=== PATIENT | male | born 1985 | race Caucasian/White ===

== ENCOUNTER 2021-01-09 16:06 | Inpatient (IN) | payer OTHER ==
[2021-01-08 20:13] VITALS: BP 130/60; PULSE 90
[~2021-01-09] VITALS: Ht 195.6 cm; Wt 82.0 kg
[2021-01-09] VITALS (8 sets, daily range): BP systolic 125–135; BP diastolic 60–77; PULSE 73–94; TEMP 97.4–99
[~2021-01-09 16:06] MED LIST: NO HOME MEDICATIONS
[2021-01-09] MEDS ORDERED: VALTREX1 GM PO (16:50)
[2021-01-09] MEDS ORDERED: DOXYCYCLINE HY100 MG PO (16:51)
[2021-01-09 17:15] LABS: SYNOVIAL FL. MONONUCLEAR 5.9 % (0-75); SYNOVIAL FLUID RBC 18000 /mm3 (0-0); SYNOVIAL FLUID WBC 35646 /mm3 (200-600)
--- NOTE | 2021-01-09 17:42 | NUR ---
Consent obtained. IV started 20 gauge LFA LR for gravity at 120 ml/hr. Assessment not complete due to surgeon and PACU nurse taking patient to OR.
[2021-01-09 18:45] LABS: SYNOVIAL FLUID APPEARANCE CLOUDY; SYNOVIAL FLUID COLOR YELLOW
--- NOTE | 2021-01-09 19:06 | NUR ---
PATIENT ARRIVAL FROM PACU PENDING, WAITING FOR CALL FOR REPORT FROM PACU NURSE WHEN PATIENT READY FOR TRANSFER.
--- NOTE | 2021-01-09 21:02 | NUR ---
TOLERATED GENERAL DIET AND PAIN MEDS AT THIS TIME. DENIES URGE TO VOID AT THIS TIME. AT BEDSIDE. IV FLUIDS INFUSING WITH NO PROBLEMS. DENIES ANY OTHER NEEDS OR CONCERNS/QUESTIONS.
[2021-01-09 22:08] LABS: HEMATOCRIT 43.3 % (42.0-52.0); HEMOGLOBIN 14.1 g/dl (13.5-18.0); MEAN CELL VOLUME 95 fl (80.0-100.0); MEAN CORPUSCULAR HEMOGLOBIN 31 pg (27.0-31.0); MEAN CORPUSCULAR HGB CONC 33 g/dl (33.0-37.0); MEAN PLATELET VOLUME 9.6 fl (7.4-10.4); PLATELET COUNT 259 K/mm3 (130-400); RED BLOOD COUNT 4.55 M/mm3 (4.20-5.60)
[2021-01-09 22:19] LABS: ALBUMIN 4.3 gm/dL (3.5-5.0); BILIRUBIN,TOTAL 0.9 mg/dL (0.0-1.0); CALCIUM 9.3 mg/dL (8.4-10.2); CREATININE, serum 0.9 (0.66-1.25); POTASSIUM 4.1 mmol/L (3.4-5.0); TOTAL PROTEIN 7.7 gm/dL (6.4-8.2)
[2021-01-09 22:35] LABS: C-REACTIVE PROTEIN 15.4 mg/dL (0.0-0.9)
[2021-01-09 23:11] LABS: BAND 3 % (0-10); HYPOCHROMIA 1+; LYMPHOCYTE 2 % (20.0-51.0); NEUTROPHILS 94 % (42.0-75.2); PLATELET ESTIMATE NORMAL (NORMAL)
--- NOTE | 2021-01-09 23:40 | NUR ---
Vancomycin Initial Dosing Pharmacy Note Ordering provider: Moy Aiken MD Indication/duration: Joint infection / 7 days Relevant comorbidities: N/A LABS: WBC = 11.4, SCr = 0.9 Recommendation: Will draw troughs and follow levels. Loading dose: 1.5 grams Maintenance dose: 1.25 grams every 8 hours Trough goal: 15-20 ug/mL
--- NOTE | 2021-01-09 23:45 | NUR ---
PATIENT VOIDED EARLIER SMALL AMOUNT OF URINE WITH NO PAIN OR URGENCY. RESTING QUIETLY IN BED WITH NO FURTHER NEEDS REPORTED. TOLERATING PO INTAKE WITH NO REPORTED NAUSEA AT THIS TIME. TELE IN PLACE.
[2021-01-10 04:31] VITALS: BP 128/70; PULSE 78; TEMP 97.5
--- NOTE | 2021-01-10 06:30 | NUR ---
Report received from ANDREW Salazar. Patient is resting comfortably in bed and denies pain at this time. This nurse talked to patient about staying ahead of the pain and not having to howard the pain. Patient stated he would ask for pain medication if his pain increased but stated he was good for now. Call light and bedside table are within reach. Will continue to monitor patient throughout shift.
[2021-01-10 06:36] LABS: HEMATOCRIT 38.8 % (42.0-52.0); HEMOGLOBIN 13.2 g/dl (13.5-18.0); MEAN CELL VOLUME 92 fl (80.0-100.0); MEAN CORPUSCULAR HEMOGLOBIN 31 pg (27.0-31.0); MEAN CORPUSCULAR HGB CONC 34 g/dl (33.0-37.0); MEAN PLATELET VOLUME 9.6 fl (7.4-10.4); PLATELET COUNT 254 K/mm3 (130-400); RED BLOOD COUNT 4.21 M/mm3 (4.20-5.60); REDCELL DISTRIBUTION WIDTH-CV 12.2 % (11.5-14.5)
[2021-01-10 06:46] LABS: CALCIUM 9.1 mg/dL (8.4-10.2); CREATININE, serum 0.75 (0.66-1.25); POTASSIUM 4.9 mmol/L (3.4-5.0)
[2021-01-10 07:19] LABS: BAND 3 % (0-10); LYMPHOCYTE 6 % (20.0-51.0); NEUTROPHILS 88 % (42.0-75.2); PLATELET ESTIMATE NORMAL (NORMAL)
--- NOTE | 2021-01-10 07:30 | NUR ---
CHANGE OF SHIFT REPORT GIVEN TO DAY SHIFT NURSES, MARY BETH RN AND ASHLEY MORALES.
[2021-01-10 07:53] VITALS: BP 127/70; PULSE 74; TEMP 98
[2021-01-10 08:01] LABS: ERYTHROCYTE SEDIMENTATION RATE 34 mm/hr (0-15)
--- NOTE | 2021-01-10 10:27 | NUR ---
SW met with patient to complete intake. Patient states that he lives in [facility] with his Ita [phone] who was present during intake, and appointed as DPOA-HC during intake. Documenation for DPOA-HC completed, reviewed, signed by patient and witnessed by facility staff. Original documenation placed in chart and copies provided to patient for their records. Patient states that he does not normally utilize DME but has recently utilized crutches, and is independent with ADL's. Patient provides that his PCP is Dr. Castro, pharmacy is [facility], and is able to afford his medications. Patient states he plans to go back to his home up [place] and has no concerns with doing so. SW will continue to follow. Plan: Home with spouse
--- NOTE | 2021-01-10 10:51 | NUR ---
Initial visit; Patient thanked [employer] for looking in on him and offering God's blessings and keeping him in [employer]'s prayers.
[2021-01-10 11:35] VITALS: BP 119/63; PULSE 85; TEMP 98.2
--- NOTE | 2021-01-10 11:40 | NUR ---
PICC line placed by ANDREW Clifton.
--- NOTE | 2021-01-10 14:44 | NUR ---
AGREE WITH ASSESSMENTS FROM MARY BETH MORALES.
[2021-01-10 15:48] VITALS: BP 119/58; PULSE 80; TEMP 98.4
[2021-01-10 19:11] VITALS: BP 128/69; PULSE 105; TEMP 98.4
--- NOTE | 2021-01-10 19:14 | NUR ---
RECEIVED CHANGE OF SHIFT REPORT FROM DAY SHIFT NURSE.
--- NOTE | 2021-01-10 19:26 | NUR ---
REPORTS NO NEEDS AT THIS TIME. UP IN ROOM INDEPENDENTLY WITH NO REPORTED PROBLEMS OR CONCERNS. AT BEDSIDE. DENIES PAIN AT THIS TIME. PICC LINE IN PLACE, GABE DRY.
[2021-01-10 23:39] VITALS: BP 119/61; PULSE 84; TEMP 97
[2021-01-11 04:20] VITALS: BP 120/60; PULSE 71; TEMP 97.9
--- NOTE | 2021-01-11 06:55 | NUR ---
CHANGE OF SHIFT REPORT GIVEN TO DAY SHIFT NURSES, MARY BETH RN AND ASHLEY MORALES.
--- NOTE | 2021-01-11 07:05 | NUR ---
Report received from ANDREW Salazar. Patient is resting comfortably in bed and denies pain at this time. Call light and bedside table are within reach. Will continue to monitor patient throughout shift.
[2021-01-11 07:40] VITALS: BP 124/73; PULSE 76; TEMP 98.3
[2021-01-11 09:27] LABS: BASO % 0.3 % (0.0-2.0); EOS % 0.2 % (0-4.0); GRAN # 5.9 (1.4-6.5); GRAN % 68.4 % (42.2-75.2); HEMATOCRIT 37.3 % (42.0-52.0); HEMOGLOBIN 12.4 g/dl (13.5-18.0); LYMPH # 2.1 (1.2-3.4); LYMPH % 24.4 % (20.0-51.0); MEAN CELL VOLUME 93 fl (80.0-100.0); MEAN CORPUSCULAR HEMOGLOBIN 31 pg (27.0-31.0); MEAN CORPUSCULAR HGB CONC 33 g/dl (33.0-37.0); MEAN PLATELET VOLUME 9.4 fl (7.4-10.4); MONO # 0.5 (0.1-0.6); MONO % 6.1 % (1.7-9.3); PLATELET COUNT 262 K/mm3 (130-400); REDCELL DISTRIBUTION WIDTH-CV 12.2 % (11.5-14.5)
[2021-01-11 09:43] LABS: C-REACTIVE PROTEIN 5.4 mg/dL (0.0-0.9); CALCIUM 8.8 mg/dL (8.4-10.2); CREATININE, serum 0.8 (0.66-1.25); POTASSIUM 3.4 mmol/L (3.4-5.0)
--- NOTE | 2021-01-11 10:36 | NUR ---
Patient requested information on WC rentals. SW called DME companies to ontain information and provided patient with follow up info. Patient due to discharge today 01/11/21. SW will continue to follow.
--- NOTE | 2021-01-11 10:57 | NUR ---
Follow-up visit; Patient doing well and thanked Elevator Attendant for looking in on him and wishing him well. Patient leaving today.
[2021-01-11 11:15] VITALS: BP 125/72; PULSE 82; TEMP 99
[2021-01-11] MEDS ORDERED: ROCEPHIN 2GM VIAL21 IV (12:49)
--- NOTE | 2021-01-11 15:21 | NUR ---
Patient has been discharged and room in clear of all belongings to include cell phone and elevator tender. Patient escorted out by SANDRA Inman.
== END 2021-01-11 15:21 | disposition home or self-care (01) | DRG 487 ==
LOC: SURG 16:18 → MEDICAL 01-10 15:44 → SURG 01-10 15:44
PROVIDERS: Orthopaedic Surgery; Physician Assistant; ADMIT Internal Medicine
PROC: 0SBC4ZZ Excision of Right Knee Joint, Percutaneous Endoscopic Approach (ICD-10-PCS; principal; 2021-01-09 17:00)
PROC: 02HV33Z Insertion of Infusion Device into Superior Vena Cava, Percutaneous Approach (ICD-10-PCS; 2021-01-10)
DX: M00.9 Pyogenic arthritis, unspecified (principal); J45.909 Unspecified asthma, uncomplicated; D72.829 Elevated white blood cell count, unspecified
CPT/HCPCS: 99233-AI; 99239; C1751; J0171; J0692; J0696; J1100; J1885; J2405; J2704; J3010; J3370; J7050

== ENCOUNTER → 2021-02-07 | Outpatient (CLI) | payer OTHER ==
[~2021-02-07] MED LIST changes: +DOXYCYCLINE HY100 MG PO; +ROCEPHIN 2GM VIAL21 IV; +VALTREX1 GM PO
== END ==
LOC: ZCOL.LAB 09:59
DX: M01.X0 Direct infection of unspecified joint in infectious and parasitic diseases classified elsewhere (principal)

== ENCOUNTER 2021-02-11 08:00 | Outpatient (RCR) | payer OTHER ==
[2021-01-12 08:16] VITALS: BP 125/68; PULSE 72; TEMP 98.5
[2021-01-13 10:07] VITALS: BP 105/62; PULSE 76; TEMP 98.1
[2021-01-14 08:25] VITALS: BP 107/60; PULSE 89; TEMP 99.1
[2021-01-14 08:36] LABS: BASO % 0.5 % (0.0-2.0); EOS # 0.2 (0.0-0.7); EOS % 2.7 % (0-4.0); GRAN # 3.5 (1.4-6.5); HEMATOCRIT 38.8 % (42.0-52.0); HEMOGLOBIN 12.9 g/dl (13.5-18.0); LYMPH # 1.4 (1.2-3.4); LYMPH % 24.3 % (20.0-51.0); MEAN CELL VOLUME 92 fl (80.0-100.0); MEAN CORPUSCULAR HEMOGLOBIN 31 pg (27.0-31.0); MEAN CORPUSCULAR HGB CONC 33 g/dl (33.0-37.0); MEAN PLATELET VOLUME 9.3 fl (7.4-10.4); MONO # 0.6 (0.1-0.6); MONO % 9.8 % (1.7-9.3); PLATELET COUNT 297 K/mm3 (130-400); RED BLOOD COUNT 4.23 M/mm3 (4.20-5.60); REDCELL DISTRIBUTION WIDTH-CV 11.9 % (11.5-14.5)
[2021-01-14 08:47] LABS: ALBUMIN 4.1 gm/dL (3.5-5.0); BILIRUBIN,TOTAL 0.6 mg/dL (0.0-1.0); C-REACTIVE PROTEIN 1.9 mg/dL (0.0-0.9); CALCIUM 8.9 mg/dL (8.4-10.2); CREATININE, serum 0.84 (0.66-1.25); POTASSIUM 4.1 mmol/L (3.4-5.0); TOTAL PROTEIN 7.1 gm/dL (6.4-8.2)
[2021-01-15 08:17] VITALS: BP 111/78; PULSE 82; TEMP 98.8
[2021-01-16 08:15] VITALS: BP 108/73; PULSE 83; TEMP 98
[2021-01-17 08:37] VITALS: BP 101/74; PULSE 65; TEMP 98.5
[2021-01-18 08:22] VITALS: BP 117/76; PULSE 85; TEMP 98.4
[2021-01-19 07:45] VITALS: BP 111/73; PULSE 91; TEMP 98.2
[2021-01-20 07:50] VITALS: BP 109/76; PULSE 79; TEMP 97.6
[2021-01-21 08:19] VITALS: BP 103/69; PULSE 84; TEMP 98.4
[2021-01-21 08:31] LABS: BASO # 0.1 (0.0-0.2); BASO % 0.9 % (0.0-2.0); EOS # 0.1 (0.0-0.7); EOS % 2.1 % (0-4.0); GRAN # 3.8 (1.4-6.5); GRAN % 58.4 % (42.2-75.2); HEMATOCRIT 40.7 % (42.0-52.0); HEMOGLOBIN 13.5 g/dl (13.5-18.0); LYMPH # 1.9 (1.2-3.4); LYMPH % 28.9 % (20.0-51.0); MEAN CELL VOLUME 92 fl (80.0-100.0); MEAN CORPUSCULAR HEMOGLOBIN 31 pg (27.0-31.0); MEAN CORPUSCULAR HGB CONC 33 g/dl (33.0-37.0); MEAN PLATELET VOLUME 9.4 fl (7.4-10.4); MONO # 0.6 (0.1-0.6); MONO % 8.5 % (1.7-9.3); PLATELET COUNT 311 K/mm3 (130-400); RED BLOOD COUNT 4.41 M/mm3 (4.20-5.60)
[2021-01-21 08:42] LABS: ALBUMIN 4.2 gm/dL (3.5-5.0); BILIRUBIN,TOTAL 0.5 mg/dL (0.0-1.0); C-REACTIVE PROTEIN 0.6 mg/dL (0.0-0.9); CALCIUM 9.1 mg/dL (8.4-10.2); CREATININE, serum 0.78 (0.66-1.25); POTASSIUM 4.3 mmol/L (3.4-5.0); TOTAL PROTEIN 7.3 gm/dL (6.4-8.2)
[2021-01-21 08:55] LABS: ERYTHROCYTE SEDIMENTATION RATE 9 mm/hr (0-15)
[2021-01-22 08:41] VITALS: BP 160/76; PULSE 80; TEMP 98.5
[2021-01-23 08:14] VITALS: BP 115/78; PULSE 88; TEMP 97.7
[2021-01-24 08:40] VITALS: BP 117/76; PULSE 87; TEMP 98
[2021-01-25 08:32] VITALS: BP 117/78; PULSE 86; TEMP 98.2
[2021-01-26 09:57] VITALS: BP 98/67; PULSE 82; TEMP 97.9
[2021-01-27 08:23] VITALS: BP 112/73; PULSE 88; TEMP 98.5
[2021-01-28 08:26] LABS: BASO # 0.1 (0.0-0.2); BASO % 1.2 % (0.0-2.0); EOS # 0.1 (0.0-0.7); EOS % 2.5 % (0-4.0); GRAN % 48.2 % (42.2-75.2); HEMATOCRIT 40.6 % (42.0-52.0); HEMOGLOBIN 13.5 g/dl (13.5-18.0); LYMPH # 1.5 (1.2-3.4); LYMPH % 36.3 % (20.0-51.0); MEAN CELL VOLUME 93 fl (80.0-100.0); MEAN CORPUSCULAR HEMOGLOBIN 31 pg (27.0-31.0); MEAN CORPUSCULAR HGB CONC 33 g/dl (33.0-37.0); MEAN PLATELET VOLUME 9.4 fl (7.4-10.4); MONO # 0.5 (0.1-0.6); MONO % 11.6 % (1.7-9.3); PLATELET COUNT 274 K/mm3 (130-400); RED BLOOD COUNT 4.37 M/mm3 (4.20-5.60); REDCELL DISTRIBUTION WIDTH-CV 12.3 % (11.5-14.5)
[2021-01-28 08:37] LABS: ALBUMIN 4.1 gm/dL (3.5-5.0); BILIRUBIN,TOTAL 0.8 mg/dL (0.0-1.0); CALCIUM 8.8 mg/dL (8.4-10.2); CREATININE, serum 0.81 (0.66-1.25); POTASSIUM 4.2 mmol/L (3.4-5.0); TOTAL PROTEIN 7.2 gm/dL (6.4-8.2)
[2021-01-28 08:53] LABS: C-REACTIVE PROTEIN 0.7 mg/dL (0.0-0.9)
[2021-01-28 09:22] LABS: ERYTHROCYTE SEDIMENTATION RATE 5 mm/hr (0-15)
[2021-01-29 08:13] VITALS: BP 116/75; PULSE 80; TEMP 98.5
[2021-01-30 08:14] VITALS: BP 114/76; PULSE 87; TEMP 98.8
[2021-01-31 08:06] VITALS: BP 115/68; PULSE 102; TEMP 98.2
[2021-02-01 08:12] VITALS: BP 115/76; PULSE 85; TEMP 98.4
[2021-02-02 08:27] VITALS: BP 118/81; PULSE 82; TEMP 98
[2021-02-03 07:45] VITALS: BP 119/87; PULSE 83; TEMP 98.2
[2021-02-04 08:22] VITALS: BP 126/76; PULSE 87; TEMP 98.4
[2021-02-04 08:32] LABS: BASO # 0.1 (0.0-0.2); BASO % 1.2 % (0.0-2.0); EOS # 0.1 (0.0-0.7); GRAN # 2.2 (1.4-6.5); GRAN % 53.5 % (42.2-75.2); HEMATOCRIT 39.9 % (42.0-52.0); HEMOGLOBIN 13.5 g/dl (13.5-18.0); LYMPH # 1.3 (1.2-3.4); LYMPH % 31.6 % (20.0-51.0); MEAN CELL VOLUME 91 fl (80.0-100.0); MEAN CORPUSCULAR HEMOGLOBIN 31 pg (27.0-31.0); MEAN CORPUSCULAR HGB CONC 34 g/dl (33.0-37.0); MEAN PLATELET VOLUME 9.7 fl (7.4-10.4); MONO # 0.4 (0.1-0.6); MONO % 10.2 % (1.7-9.3); PLATELET COUNT 209 K/mm3 (130-400); RED BLOOD COUNT 4.38 M/mm3 (4.20-5.60); REDCELL DISTRIBUTION WIDTH-CV 12.2 % (11.5-14.5)
[2021-02-04 08:49] LABS: ALBUMIN 4.4 gm/dL (3.5-5.0); BILIRUBIN,TOTAL 0.9 mg/dL (0.0-1.0); C-REACTIVE PROTEIN 0.7 mg/dL (0.0-0.9); CREATININE, serum 0.83 (0.66-1.25); POTASSIUM 4.3 mmol/L (3.4-5.0); TOTAL PROTEIN 7.4 gm/dL (6.4-8.2)
[2021-02-04 09:39] LABS: ERYTHROCYTE SEDIMENTATION RATE 6 mm/hr (0-15)
[2021-02-05 08:13] VITALS: BP 107/69; PULSE 80; TEMP 98.2
[2021-02-06 08:30] VITALS: BP 116/76; PULSE 76; TEMP 98.6
[2021-02-07 08:07] VITALS: BP 116/80; PULSE 87; TEMP 98.9
[2021-02-08 08:38] VITALS: BP 116/80; PULSE 86; TEMP 98.2
[2021-02-09 08:17] VITALS: BP 107/69; PULSE 111; TEMP 97.4
[2021-02-10 08:11] VITALS: BP 104/71; PULSE 99; TEMP 97.9
[~2021-02-11] VITALS: Ht 195.6 cm; Wt 82.8 kg
[2021-02-11 08:25] VITALS: BP 115/79; PULSE 77; TEMP 98.7; TEMP 99.5
[2021-02-11 08:37] LABS: BASO % 0.9 % (0.0-2.0); EOS # 0.2 (0.0-0.7); EOS % 3.4 % (0-4.0); GRAN # 2.3 (1.4-6.5); GRAN % 51.3 % (42.2-75.2); HEMATOCRIT 39.9 % (42.0-52.0); HEMOGLOBIN 13.8 g/dl (13.5-18.0); LYMPH # 1.5 (1.2-3.4); LYMPH % 32.4 % (20.0-51.0); MEAN CELL VOLUME 89 fl (80.0-100.0); MEAN CORPUSCULAR HEMOGLOBIN 31 pg (27.0-31.0); MEAN CORPUSCULAR HGB CONC 35 g/dl (33.0-37.0); MEAN PLATELET VOLUME 9.9 fl (7.4-10.4); MONO # 0.5 (0.1-0.6); MONO % 11.6 % (1.7-9.3); PLATELET COUNT 212 K/mm3 (130-400); RED BLOOD COUNT 4.49 M/mm3 (4.20-5.60); REDCELL DISTRIBUTION WIDTH-CV 12.3 % (11.5-14.5)
[2021-02-11 08:50] LABS: ALBUMIN 4.3 gm/dL (3.5-5.0); BILIRUBIN,TOTAL 0.6 mg/dL (0.0-1.0); C-REACTIVE PROTEIN 0.8 mg/dL (0.0-0.9); CREATININE, serum 0.88 (0.66-1.25); POTASSIUM 4.2 mmol/L (3.4-5.0); TOTAL PROTEIN 7.5 gm/dL (6.4-8.2)
[2021-02-11 09:38] LABS: ERYTHROCYTE SEDIMENTATION RATE 6 mm/hr (0-15)
== END 2021-02-11 12:09 | disposition home or self-care (01) ==
LOC: EUO 08:00
PROVIDERS: Internal Medicine; Internal Medicine Infectious Disease
DX: B99.9 Unspecified infectious disease (principal); Z79.899 Other long term (current) drug therapy
CPT/HCPCS: J0696

== ENCOUNTER → 2021-04-24 | Outpatient (CLI) | payer OTHER ==
[2021-04-24 10:23] LABS: BASO % 0.7 % (0.0-2.0); EOS # 0.1 K/mm3 (0.0-0.7); EOS % 1.2 % (0-4.0); GRAN # 3.8 K/mm3 (1.4-6.5); GRAN % 62.6 % (42.2-75.2); HEMATOCRIT 45.9 % (42.0-52.0); HEMOGLOBIN 15.6 g/dl (13.5-18.0); LYMPH # 1.6 K/mm3 (1.2-3.4); LYMPH % 26.5 % (20.0-51.0); MEAN CELL VOLUME 90 fl (80.0-100.0); MEAN CORPUSCULAR HEMOGLOBIN 31 pg (27.0-31.0); MEAN CORPUSCULAR HGB CONC 34 g/dl (33.0-37.0); MEAN PLATELET VOLUME 9.3 fl (7.4-10.4); MONO # 0.5 K/mm3 (0.1-0.6); MONO % 8.8 % (1.7-9.3); PLATELET COUNT 284 K/mm3 (130-400); RED BLOOD COUNT 5.08 M/mm3 (4.20-5.60)
[2021-04-24 10:39] LABS: ALBUMIN 4.5 gm/dL (3.5-5.0); BILIRUBIN,TOTAL 1.1 mg/dL (0.2-1.2); CALCIUM 9.9 mg/dL (8.4-10.2); CREATININE, serum 1.01 mg/dL (0.72-1.25); POTASSIUM 4.5 mmol/L (3.5-4.5); TOTAL PROTEIN 7.6 gm/dL (6.2-8.1)
== END ==
LOC: COL.LAB 09:33
DX: R10.9 Unspecified abdominal pain (principal)

== ENCOUNTER → 2022-04-22 | Outpatient (CLI) | payer BC ==
[2022-04-22 12:07] LABS: ALBUMIN 4.4 gm/dL (3.5-5.0); C-REACTIVE PROTEIN 0.21 mg/dL (0.00-0.50); CALCIUM 9.4 mg/dL (8.4-10.2); CREATININE, serum 1.01 mg/dL (0.72-1.25); POTASSIUM 4.6 mmol/L (3.5-4.5); TOTAL PROTEIN 7.3 gm/dL (6.2-8.1)
[2022-04-22 12:51] LABS: BASO # 0.1 K/mm3 (0.0-0.2); EOS % 0.8 % (0.0-4.0); GRAN % 56.6 % (42.2-75.2); HEMATOCRIT 41.4 % (42.0-52.0); HEMOGLOBIN 14.2 g/dl (13.5-18.0); LYMPH # 1.7 K/mm3 (1.2-3.4); LYMPH % 32.8 % (20.0-51.0); MEAN CELL VOLUME 89 fl (80.0-100.0); MEAN CORPUSCULAR HEMOGLOBIN 30 pg (27-31); MEAN CORPUSCULAR HGB CONC 34 g/dl (33.0-37.0); MEAN PLATELET VOLUME 9.8 fl (7.4-10.4); MONO # 0.5 K/mm3 (0.1-0.6); MONO % 8.6 % (1.7-9.3); PLATELET COUNT 276 K/mm3 (130-400); RED BLOOD COUNT 4.67 M/mm3 (4.20-5.60); REDCELL DISTRIBUTION WIDTH-CV 12.2 % (11.5-14.5)
[2022-04-22 13:30] LABS: ERYTHROCYTE SEDIMENTATION RATE 4 mm/hr (0-15)
== END ==
LOC: COL.LAB 11:21
PROVIDERS: Family Medicine
DX: R10.31 Right lower quadrant pain (principal)

== ENCOUNTER 2022-10-03 06:45 | Day surgery (SDC) | payer BC ==
[~2022-10-03] VITALS: Ht 193 cm; Wt 90.5 kg
[2022-10-03 07:54] VITALS: BP 120/79; PULSE 81; TEMP 97.3
[2022-10-03 08:55] VITALS: BP 123/75; PULSE 76; TEMP 97.9
[2022-10-03 09:00] VITALS: BP 117/81; PULSE 78
[2022-10-03 09:15] VITALS: BP 119/51; PULSE 74
[2022-10-03 09:35] VITALS: BP 120/63; PULSE 79
--- NOTE | 2022-10-03 09:43 | NUR ---
0855- PATIENT RETURNS TO [facility] VIA CART. PT AWAKE AND ALERT. RESPIRATIONS UNLABORED. AMBULATED TO RECLINER CHAIR WITH 2:1 SBA. PT DENIES NAUSEA OR ABDOMINAL PAIN. HOOKED UP TO MONITOR AND VS OBTAINED. CALL LIGHT AT SIDE AND PRESENT. 0900- PATIENT TOLERATING JUICE AND MUFFIN WITHOUT NAUSEA OR DIFFICULTY SWALLOWING. 0914- DR. CHAVEZ IN ROOM SPEAKING WITH PATIENT. 925- D/C INSTRUCTIONS REVIEWED WITH PATIENT. PT VERBALIZED UNDERSTANDING AND A COPY OF INSTRUCTIONS PROVIDED IN D/C FOLDER. 0939- PT DRESSES SELF. 0943- PATIENT DISCHARGED FROM UNIT VIA W/C TO A PERSONAL VEHICLE. PT LEFT HOSPITAL IN STABLE CONDITION.
== END 2022-10-03 09:43 | disposition home or self-care (01) ==
LOC: SDCO 06:45
DX: K21.00 Gastro-esophageal reflux disease with esophagitis, without bleeding (principal); K44.9 Diaphragmatic hernia without obstruction or gangrene; R19.7 Diarrhea, unspecified; R19.5 Other fecal abnormalities; Z79.899 Other long term (current) drug therapy
CPT/HCPCS: J2704; J3010; J7120